=== PATIENT | female | born 1960 | race Caucasian/White ===

== ENCOUNTER 2025-01-03 06:17 | Day surgery (SDC) | payer MEDICARE, OTHER, SELFPAY | END 2025-01-03 11:56 | disposition home or self-care (01) | LOC: GI 06:17 | PROVIDERS: ATTENDING PHYSICIAN Internal Medicine Gastroenterology | DX: Z12.11 Encounter for screening for malignant neoplasm of colon (principal); K64.8 Other hemorrhoids; K57.30 Diverticulosis of large intestine without perforation or abscess without bleeding | CPT/HCPCS: 45385; 45381; 88305 ==